=== PATIENT | male | born 1935 | race Caucasian/White ===

== ENCOUNTER 2019-01-12 06:01 | Inpatient (IN) | payer MEDICARE, BC ==
[~2019-01-12 06:01] MED LIST: CEFAZOLIN 1 GM/50 ML (PMX) 50 ML IVPB
[2019-01-12] MEDS: oxyCODONE (CR) 10 MG TAB [oxyCONTIN] PO (06:41)
[2019-01-12] MEDS: LACTATED RINGER'S 1,000 ML IV* ×2 (06:41→11:39)
[2019-01-12] MEDS: DEXAMETHASONE 4 MG/ML 1 ML INJ IV (06:41)
[2019-01-12] MEDS: ONDANSETRON 4 MG INJ IV ×4 (06:41→23:30)
[2019-01-12] MEDS: ACETAMINOPHEN 1000MG/100ML IV 100 ML IVPB (06:53)
[2019-01-12] MEDS: LANSOPRAZOLE 30 MG CAP PO (06:54)
[2019-01-12] MEDS ORDERED: ROCURONIUM 50 MG INJ (07:00)
[2019-01-12] MEDS ORDERED: ETOMIDATE 20 MG INJ (07:00)
[2019-01-12] MEDS ORDERED: morphine SULFATE/PF (10 MG/10 ML) INJ (07:25)
[2019-01-12] MEDS ORDERED: EPINEPHrine 1 MG INJ (07:26)
[2019-01-12] MEDS ORDERED: MIDAZOLAM 1 MG/ML 2 ML INJ (07:29)
[2019-01-12] MEDS ORDERED: FENTAnyl 50 MCG/ML VIAL (07:46)
[2019-01-12] MEDS ORDERED: PHENYLephrine 10 MG INJ (09:46)
[2019-01-12] MEDS ORDERED: NEOSTIGMINE 3 MG/3 ML SYRINGE (09:58)
[2019-01-12] MEDS ORDERED: CEFAZOLIN 1 GM INJ (09:58)
[2019-01-12] MEDS ORDERED: GLYCOPYRROLATE 0.4 MG INJ (09:58)
[2019-01-12] MEDS: TRANEXAMIC ACID 1,000 MG in NS 100 ML INTRA-OP X1 IVPB ×2 (10:23)
[2019-01-12] MEDS: TRANEXAMIC ACID 1,000 MG in NS 100 ML PRE-OP X1 IVPB ×2 (10:23)
[2019-01-12] MEDS: BACITRACIN 50000 UNITS INJ (10:23)
[2019-01-12] MEDS: POLYMYXIN B 500000 UNIT INJ (10:23)
[2019-01-12] MEDS: HIP PAIN COCKTAIL (CEFUROXIME) INJ (10:23)
[2019-01-12] MEDS ORDERED: ONDANSETRON 4 MG INJ IV ×2 (10:30)
[2019-01-12] MEDS ORDERED: NALOXONE (0.4 MG/ML) INJ IV (10:30)
[2019-01-12] MEDS ORDERED: hydrALAzine 20 MG INJ IV (10:30)
[2019-01-12] MEDS ORDERED: HYDROmorphONE 0.5 MG/0.5 ML SYG IV ×2 (10:30)
[2019-01-12] MEDS ORDERED: NACL 0.9% 3 ML SYG IV (10:30)
[2019-01-12] MEDS ORDERED: METOCLOPRAMIDE 10 MG INJ IV (10:30)
[2019-01-12] MEDS ORDERED: HYDROmorphONE 1 MG/5 ML IV SYRINGE IV ×3 (10:30)
[2019-01-12] MEDS ORDERED: MEPERIDINE 25 MG INJ IV (10:30)
[2019-01-12] MEDS ORDERED: oxyCODONE 5 MG TAB PO (10:30)
[2019-01-12] MEDS ORDERED: ALBUTEROL 0.083% (NEB) 2.5 MG/3 ML AMP HHN (10:30)
[2019-01-12] MEDS ORDERED: HYDROCODONE/APAP (5/325) TAB GTB (10:30)
[2019-01-12] MEDS ORDERED: DIPHENHYDRAMINE 50 MG INJ IV ×2 (10:30)
[2019-01-12] MEDS ORDERED: LABETALOL HCL 20MG INJ IV (10:30)
[2019-01-12] MEDS ORDERED: KETOROLAC 30 MG INJ IV ×2 (10:30)
[2019-01-12] MEDS ORDERED: EPHEDrine SULFATE 50 MG/5 ML SYG IV (10:30)
[2019-01-12] MEDS ORDERED: KETOROLAC 15 MG INJ IV (10:45)
[2019-01-12] MEDS: CEFAZOLIN 2 GM/50 ML (PMX) 50 ML IVPB ×2 (11:08→20:05)
[2019-01-12] MEDS: DOCUSATE SODIUM 100 MG CAP PO (11:10)
[2019-01-12] MEDS: FAMOTIDINE 20 MG TAB PO (23:04)
[2019-01-13] MEDS: ONDANSETRON 4 MG INJ IV (03:39)
[2019-01-13] MEDS: CEFAZOLIN 2 GM/50 ML (PMX) 50 ML IVPB (03:41)
[2019-01-13 05:12] LABS: ADD MAN DIFF? NO
[2019-01-13 05:19] LABS: WHITE BLOOD COUNT 12.9 10^3/ul (4.8-10.8)
[2019-01-13 05:19] LABS: ABNORMAL IP MESSAGE 1; BASOPHILS % 0.2 % (0.0-2.0); EOSINOPHILS % 0.3 % (0.0-7.0); HEMATOCRIT 34.2 % (42.0-52.0); LYMPHOCYTES # 1.5 10^3/ul (0.8-2.9); LYMPHOCYTES % 11.5 % (15.0-51.0); MEAN CORPUSCULAR HEMOGLOBIN 29.9 pg (29.0-33.0); MEAN CORPUSCULAR HGB CONC 32.2 g/dl (32.0-37.0); MEAN CORPUSCULAR VOLUME 92.9 fl (82.0-101.0); MEAN PLATELET VOLUME 10.5 fl (7.4-10.4); MONOCYTE # 1.6 10^3/ul (0.3-0.9); MONOCYTES % 12.4 % (0.0-11.0); NEUTROPHIL # 9.7 10^3/ul (1.6-7.5); NEUTROPHILS % 74.8 % (39.0-77.0); PLATELET COUNT 188 10^3/UL (140-415); POSITIVE DIFF @See below; RED BLOOD COUNT 3.68 10^6/ul (4.70-6.10)
[2019-01-13] MEDS: PANTOPRAZOLE (EC) 40 MG TAB PO (05:30)
[2019-01-13] MEDS: LIDOCAINE/MYLANTA 40 ML BTL PO (05:30)
[2019-01-13 05:34] LABS: ANION GAP 6 (5-13); BLOOD UREA NITROGEN 21 mg/dl (7-20); CALCIUM 8.1 mg/dl (8.4-10.2); CARBON DIOXIDE 34 mmol/L (21-31); CHLORIDE 97 mmol/L (97-110); CREATININE 0.79 mg/dl (0.61-1.24); GLUCOSE 109 mg/dl (70-220); POTASSIUM 3.6 mmol/L (3.5-5.1); SODIUM 137 mmol/L (135-144)
[2019-01-13] MEDS: KETOROLAC 15 MG INJ IV ×3 (08:50→20:04)
[2019-01-13] MEDS: ASPIRIN (EC) 81 MG TAB PO ×2 (08:50→20:04)
[2019-01-13] MEDS: DOCUSATE SODIUM 100 MG CAP PO ×2 (09:00→20:03)
[2019-01-13] MEDS: CELECOXIB 100 MG CAP PO ×2 (09:00→20:03)
[2019-01-13] MEDS: TAMSULOSIN (SR) 0.4 MG CAP PO (20:03)
[2019-01-14] MEDS: KETOROLAC 15 MG INJ IV (05:19)
[2019-01-14] MEDS: PANTOPRAZOLE (EC) 40 MG TAB PO (05:19)
[2019-01-14 05:24] LABS: ADD MAN DIFF? NO
[2019-01-14 05:40] LABS: WHITE BLOOD COUNT 9.5 10^3/ul (4.8-10.8)
[2019-01-14 05:40] LABS: BASOPHILS % 0.3 % (0.0-2.0); EOSINOPHILS # 0.1 10^3/ul (0.0-0.5); EOSINOPHILS % 1.3 % (0.0-7.0); HEMATOCRIT 29.9 % (42.0-52.0); HEMOGLOBIN 9.6 g/dl (14.0-18.0); LYMPHOCYTES # 1.2 10^3/ul (0.8-2.9); LYMPHOCYTES % 12.8 % (15.0-51.0); MEAN CORPUSCULAR HEMOGLOBIN 29.8 pg (29.0-33.0); MEAN CORPUSCULAR HGB CONC 32.1 g/dl (32.0-37.0); MEAN CORPUSCULAR VOLUME 92.9 fl (82.0-101.0); MEAN PLATELET VOLUME 10.8 fl (7.4-10.4); MONOCYTE # 1.1 10^3/ul (0.3-0.9); MONOCYTES % 11.1 % (0.0-11.0); NEUTROPHIL # 7.1 10^3/ul (1.6-7.5); PLATELET COUNT 148 10^3/UL (140-415); RED BLOOD COUNT 3.22 10^6/ul (4.70-6.10); RED CELL DISTRIBUTION WIDTH 12.9 % (11.5-14.5)
[2019-01-14 05:50] LABS: ANION GAP 4 (5-13); BLOOD UREA NITROGEN 21 mg/dl (7-20); CALCIUM 7.7 mg/dl (8.4-10.2); CARBON DIOXIDE 34 mmol/L (21-31); CHLORIDE 95 mmol/L (97-110); GLUCOSE 122 mg/dl (70-220); POTASSIUM 3.3 mmol/L (3.5-5.1); SODIUM 133 mmol/L (135-144)
[2019-01-14] MEDS: LEVOTHYROXINE 88 MCG TAB PO (07:41)
[2019-01-14] MEDS: CHLORTHALIDONE 25 MG TAB PO (09:00)
[2019-01-14] MEDS ORDERED: NON-FORMULARY/PATIENT OWN MED (Mirabegron (Myrbetriq) 50 MG) PO (09:00)
[2019-01-14] MEDS ORDERED: NON-FORMULARY/PATIENT OWN MED (Omeprazole* 40 MG) PO (09:00)
[2019-01-14] MEDS ORDERED: [UNRECOGNIZED DRUG - REMARK] XX (09:30)
[2019-01-14] MEDS: ASPIRIN (EC) 81 MG TAB PO (10:01)
[2019-01-14] MEDS: CELECOXIB 100 MG CAP PO (10:01)
[2019-01-14] MEDS: DOCUSATE SODIUM 100 MG CAP PO (10:02)
[2019-01-14] MEDS: POTASSIUM CHLORIDE (SR) 20 MEQ TAB PO (12:10)
[2019-01-14] MEDS: CALCIUM GLUCONATE 10% 1 GM in DEXTROSE 5% 100 ML IVPB (12:11)
== END 2019-01-14 14:42 | disposition home health service (06) | DRG 470 ==
LOC: REC 06:01 → MS1 11:17
PROC: 0SR904A Replacement of Right Hip Joint with Ceramic on Polyethylene Synthetic Substitute, Uncemented, Open Approach (ICD-10-PCS; principal; 2019-01-12 07:26)
DX: M16.11 Unilateral primary osteoarthritis, right hip (principal); K21.9 Gastro-esophageal reflux disease without esophagitis; I10 Essential (primary) hypertension; E03.9 Hypothyroidism, unspecified; E83.51 Hypocalcemia; E87.6 Hypokalemia; E66.9 Obesity, unspecified; Z68.28 Body mass index [BMI] 28.0-28.9, adult
CPT/HCPCS: 72170; 73530; 80048; 85025; 86850; 86900; 86901; 87081; 87086; 88304; 88311; 97116; 97161; 97165; 97530; 97535